=== PATIENT | male | born 1995 | race Caucasian/White ===

== ENCOUNTER 2019-05-13 12:51 | Emergency (ER) | payer OTHER ==
[2019-05-13 13:09] VITALS: BP 118/53; PULSE 54; TEMP 98.2; BMI 24.8
--- NOTE | 2019-05-13 13:25 | PDOC ---
History of Present Illness - General Chief Complaint: Ear Problem Stated Complaint: R EAR HUMMING Time Seen by Provider: 05/13/19 13:13 History Source: Patient - History of Present Illness Timing/Duration: other Past History - Past Medical History Allergies/Adverse Reactions: Allergies Allergy/AdvReac Type Severity Reaction Status Date / Time No Known Allergies Allergy Verified 05/13/19 13:04 Home Medications: Ambulatory Orders Carbamide Peroxide [Debrox] 15 ml OT BID #1 drops 05/13/19 COPD: No - Psycho Social/Smoking Cessation Hx Smoking History: Never smoked Have you smoked in the past 12 months: No Information on smoking cessation initiated: No Hx Alcohol Use: No Drug/Substance Use Hx: No Review of Systems - Review of Systems Constitutional: No: Chills, Fever HEENTM: No: Ear Pain, Ear Discharge Neurological: No: Headache, Dizziness *Physical Exam - Vital Signs Last Vital Signs Temp Pulse Resp BP Pulse Ox 98.2 F 54 L 18 118/53 L 96 05/13/19 13:05 05/13/19 13:05 05/13/19 13:05 05/13/19 13:05 05/13/19 13:05 - Physical Exam General Appearance: Yes: Appropriately Dressed. No: Apparent Distress HEENT: positive: Other (soft cerumen impaction to ear canal b/l, R>L, unable to visualize R TM) Neck: positive: Supple. negative: Lymphadenopathy (R), Lymphadenopathy (L) Respiratory/Chest: negative: Respiratory Distress Integumentary: positive: Dry, Warm Neurologic: positive: Fully Oriented, Alert, Normal Mood/Affect Medical Decision Making - Medical Decision Making 05/13/19 13:26 23-year-old male no significant history here with humming sound to right ear with decreased hearing loss since times few days. No pain, otorrhea, sore throat fever/chills headache, dizziness nausea or vomiting See exam Cerumen impaction R>L -Dc w/ debox -To return as needed Discharge - Discharge Information Problems reviewed: Yes Clinical Impression/Diagnosis: Cerumen impaction Qualifiers: Laterality: right Qualified Code(s): H61.21 - Impacted cerumen, right ear Condition: Good Disposition: HOME - Additional Discharge Information Prescriptions: Carbamide Peroxide [Debrox] 15 ml OT BID #1 drops - Follow up/Referral Referrals: ON STAFF,NOT [Primary Care Provider] - - Patient Discharge Instructions Patient Printed Discharge Instructions: Cerumen Impaction Additional Instructions: You have significant wax in your ears obstructing your eardrums and this is most likely the cause of your ear discomfort and decreased hearing Debrox is a solution that softens wax so excess wax can be removed. Please use as directed. Return to ER for worsening of symptoms - Post Discharge Activity
== END 2019-05-13 13:32 | disposition home or self-care (01) ==
LOC: JER 12:51 → JERFT 12:51
DX: H61.21 Impacted cerumen, right ear (principal)
CPT/HCPCS: 99281-25

== ENCOUNTER 2019-07-09 19:22 | Emergency (ER) | payer OTHER ==
[2019-07-09 19:44] VITALS: BP 113/61; PULSE 74; TEMP 98.8; BMI 24.4
--- NOTE | 2019-07-09 19:44 | PDOC ---
Rapid Medical Evaluation Time Seen by Provider: 07/09/19 19:40 Medical Evaluation: Allergies Allergy/AdvReac Type Severity Reaction Status Date / Time No Known Allergies Allergy Verified 05/13/19 13:04 07/09/19 19:41 Pt presents to the ER for pain to the L foot. Pt states he rolled his ankle after missing a stair at home last night. Took Tylenol this morning. Exam: grossly swollen L lateral malleolus. TTP over the area. 2+ distal pulses. Decreased ROM d/t pain Orders: X-ray, Motrin Pt to proceed to the ER for further evaluation Discharge Disposition - Diagnosis Ankle pain - Referrals - Patient Instructions - Post Discharge Activity
--- NOTE | 2019-07-09 22:02 | PDOC ---
History of Present Illness - General Chief Complaint: Injury Stated Complaint: FALL INJURY TO LEFT FOOT Time Seen by Provider: 07/09/19 19:40 - History of Present Illness Initial Comments: 07/09/19 22:00 23-year-old male without comorbidities presents for evaluation of left ankle pain after describing an inversion injury which occurred today while walking down a step. Past History - Past Medical History Allergies/Adverse Reactions: Allergies Allergy/AdvReac Type Severity Reaction Status Date / Time No Known Allergies Allergy Verified 07/09/19 19:43 Home Medications: Ambulatory Orders Carbamide Peroxide [Debrox] 15 ml OT BID #1 drops 05/13/19 COPD: No - Immunization History Immunization Up to Date: Yes - Psycho Social/Smoking Cessation Hx Smoking History: Never smoked Have you smoked in the past 12 months: No Information on smoking cessation initiated: No Hx Alcohol Use: No Drug/Substance Use Hx: No Review of Systems - Review of Systems Musculoskeletal: Yes: Joint Pain *Physical Exam - Vital Signs Last Vital Signs Temp Pulse Resp BP Pulse Ox 98.8 F 74 17 113/61 99 07/09/19 19:40 07/09/19 19:40 07/09/19 19:40 07/09/19 19:40 07/09/19 19:40 - Physical Exam 07/09/19 22:00 Left ankle skin color and temperature normal range of motion is slightly limited. There is no tenderness about the proximal fibula or along its distal course. No tenderness about the medial lateral malleolus base of the fifth metatarsal or navicular. Mild tenderness over the ATFL without instability no gross sensorimotor deficits neurovascular intact. Medical Decision Making - Medical Decision Making 07/09/19 22:00 Weight-bear as tolerated with crutches and Aircast Tylenol Motrin for pain follow-up with Orth 07/09/19 22:00 X-rays of the left ankle show no evidence of fracture trauma or destructive process Discharge - Discharge Information Problems reviewed: Yes Clinical Impression/Diagnosis: Ankle pain, Left ankle sprain Condition: Stable Disposition: HOME - Admission No - Follow up/Referral Referrals: ON STAFF,NOT [Primary Care Provider] - Henry Bishop DO [Staff Physician] - - Patient Discharge Instructions Additional Instructions: You may weight-bear as tolerated with use of crutches in the Aircast Tylenol as directed for pain. Return to the emergency room for worsening symptoms. And without fail please follow-up with orthopedic surgery in 1 to 2 days for further evaluation and treatment options. - Post Discharge Activity
== END 2019-07-09 22:35 | disposition home or self-care (01) ==
LOC: JERFT 19:22
PROC: 2W3RX1Z Immobilization of Left Lower Leg using Splint (ICD-10-PCS; principal; 2019-07-09)
DX: S93.402A Sprain of unspecified ligament of left ankle, initial encounter (principal); X58.XXXA Exposure to other specified factors, initial encounter; Y93.89 Activity, other specified; Y92.89 Other specified places as the place of occurrence of the external cause
CPT/HCPCS: 73610-TC-LT-FY; 73630-TC-LT; 99282-25